=== PATIENT | male | born 1940 | race African-American/Black ===

== ENCOUNTER 2019-09-18 15:13 | Inpatient (IN) | payer MEDICARE ==
[~2019-09-18] VITALS: Ht 203.2 cm; Wt 101.6 kg
[2019-09-18 15:40] VITALS: BP 152/81
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
[2019-09-18] MEDS ORDERED: AMLO5TAB9 PO (16:05)
[2019-09-18] MEDS ORDERED: MAGNESIUM HYDROXIDE 30 ML UDC PO PRN (17:00)
[2019-09-18] MEDS ORDERED: BLOOD SUGAR DIAGNOSTIC 1 EACH STRIP IN ONE (17:00)
[2019-09-18] MEDS ORDERED: MAG HYDROX/AL HYDROX/SIMETH 30 ML UDC PO PRN (17:00)
[2019-09-18] MEDS ORDERED: LORAZEPAM 0.5 MG TABLET PO PRN (17:00)
[2019-09-18] MEDS ORDERED: TEMAZEPAM 7.5 MG CAPSULE PO PRN (17:00)
[2019-09-18] MEDS ORDERED: ACETAMINOPHEN 325 MG TABLET PO PRN (17:00)
[2019-09-18 19:21] LABS: ALBUMIN 4.3 g/dL (3.4-5.0); BILIRUBIN,TOTAL 1.1 mg/dL (0.2-1.0); CALCIUM, SERUM 9.9 mg/dL (8.5-10.1); CREATININE 1.2 mg/dL (0.6-1.3); POTASSIUM 3.8 mmol/L (3.5-5.1); TOTAL PROTEIN, SERUM 8.1 g/dL (6.4-8.2)
[2019-09-18 20:00] VITALS: BP 165/70
[2019-09-18] MEDS: CLONIDINE HCL 0.1 MG TABLET PO PRN (20:40)
--- NOTE | 2019-09-18 20:42 | NUR ---
GPS RN notes Pt's BP 165/70 and pulse 72. Administered clonidine 0.1 mg/po as ordered for SBP>160. Pt verbalized understanding. Safety precautions is maintained. Will continue to monitor.
[2019-09-18 20:45] VITALS: BP 165/70
--- NOTE | 2019-09-18 23:00 | NUR ---
GPS RN notes Pt refused to have BP check. Offered several times. Made aware risks and benefits. Pt keep refusing and easily agitated. Pt stated "just let me sleep!" Charge nurse is aware and notified. Will continue to monitor.
[2019-09-19 08:00] VITALS: BP 121/71
[2019-09-19] MEDS: AMLODIPINE BESYLATE 5 MG TABLET PO SCH (08:42)
[2019-09-19 16:00] VITALS: BP 150/74
--- NOTE | 2019-09-19 20:00 | NUR ---
GPS RN NOTES REFUSED VITAL SIGNS TO BE TAKE THIS TIME
[2019-09-20] MEDS: AMLODIPINE BESYLATE 5 MG TABLET PO SCH (07:59)
[2019-09-20 08:00] VITALS: BP 157/82
[2019-09-20] MEDS: ESCITALOPRAM OXALATE (10 MG) 10 MG TABLET PO SCH (08:00)
[2019-09-20 15:57] VITALS: BP 173/63
[2019-09-20] MEDS: CLONIDINE HCL 0.1 MG TABLET PO PRN (17:09)
--- NOTE | 2019-09-20 21:58 | NUR ---
GPS RN Note: Patient refused V/S to be taken,staff attempted 3x and stated"Don't disturb me".No s/s of acute distress noted at this time.Will continue to monitor q15 min rounds for safety.
--- NOTE | 2019-09-20 23:04 | NUR ---
RN Note: Patient refused skin reassessment.
[2019-09-21 08:00] VITALS: BP 132/81
[2019-09-21] MEDS: AMLODIPINE BESYLATE 5 MG TABLET PO SCH (08:25)
[2019-09-21] MEDS: ESCITALOPRAM OXALATE (10 MG) 10 MG TABLET PO SCH (08:25)
[2019-09-21 08:26] VITALS: BP 132/81
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
[2019-09-21] MEDS ORDERED: LISINOPRIL (5MG) 5 MG TABLET PO SCH (09:00)
--- NOTE | 2019-09-21 09:31 | NUR ---
FRIEND CONTACT: SW contacted pts friend Marbin Araujo ([phone]) who states pt has a very good support system and states that pt is a happy person and has never expressed thoughts of suicide or has shown any signs of depression. Friend states that pts dies several years ago and that he now lives at home with a roommate. 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 SW informed him that pt is being discharged on this present day, Friend states he is unable to provide transportation for pt.
--- NOTE | 2019-09-21 10:42 | NUR ---
INITIAL DISCHARGE PLAN: Pt wishes to discharge back home to [address] [place] [address] [address]. SW will help form a safe and proper discharge in collaboration with .
--- NOTE | 2019-09-21 11:15 | NUR ---
DISCHARGE NOTE: Pt will be discharged at 2:00pm via [facility] (Self pay) home to [address] [place] [address]. Pts friend Marbin [phone] has been notified and agrees with discharge plan. Pt is alert and oriented x4. Pt is ambulatory and his mood is euthymic with congruent affect. Pt denied visual/auditory hallucinations and denied suicidal/homicidal ideation. YOLANDA provided pt with substance abuse resources to [facility] [address] [place] [address] / , [facility] [address] [place], [place] [id number] and [facility] [address] [place] [address] . Pt will follow up with Psychiatrist: Dr. Beth Garcia Address: [address] [place] [address] on September 28, 2019 at 11:00am. YOLANDA faxed clinical information to . Pt will also follow up with [facility]: Dr. Nasim Malhotra Address: [address] [place] [address] [address], [place] [address] . The multidisciplinary exit care form was done, printed, signed, and given to the patient.
--- NOTE | 2019-09-21 14:20 | NUR ---
GENERAL CLAIMS AGENT NOTE:PATIENT ALERT,OX3 ,VERBALLY RESPONSIVE ,DENIES SI/HI/AVH ,VS STABLE ,NO C/O PAIN ,MED COMPLAINT PATIENT AMBULATORY AND SELF CARE , AND [facility] CHARTER REPRESENTATIVE NOTIFIED WITH DISCHARGE ORDERS ,ALL ORDERS CARRIED OUT PRESCRIPTION GIVEN AND EXPLAINED TO PATIENT ABLE TO VERBALIZE UNDERSTANDING .ALL BELONGINGS RETURNED TO PATIENT HOLD DISCONTINUE BY ,PATIENT DISCHARGED WITH [facility] TO HOME AT 14:20.
== END 2019-09-21 14:20 | disposition home or self-care (01) | DRG 885 ==
LOC: GPS 15:13
PROVIDERS: ADMIT Psychiatry & Neurology Psychiatry; ATTEND Nurse Practitioner Acute Care
DX: F32.2 Major depressive disorder, single episode, severe without psychotic features (principal); R45.851 Suicidal ideations; F23 Brief psychotic disorder; E11.9 Type 2 diabetes mellitus without complications; Z85.46 Personal history of malignant neoplasm of prostate; I10 Essential (primary) hypertension; F10.21 Alcohol dependence, in remission; Z85.72 Personal history of non-Hodgkin lymphomas; Z90.79 Acquired absence of other genital organ(s)
CPT/HCPCS: 36415; 80053-TC; 80061-TC; 82962-TC; 87081-TC